=== PATIENT | male | born 1955 | race American Indian/Alaskan Native ===

== ENCOUNTER 2017-05-05 10:58 | Day surgery (SDC) | payer BC ==
[~2017-05-05 10:58] MED LIST: ANCEF/STERILE WATER 2 GM/20 ML IV NR; GARAMYCIN/NS 80 MG/100 ML 100 ML IV SCH
[2017-05-05] MEDS ORDERED: NACL BACTERIOSTATIC INFILTRATI ONE (11:32)
--- NOTE | 2017-05-05 11:34 | Anesthesia Consultation ---
Anesthesia Consult and Med Hx Date of service: 05/05/17 - Airway Anesthetic Teeth Evaluation: Good ROM Head & Neck: Adequate Mental/Hyoid Distance: Adequate Mallampati Class: Class II Intubation Access Assessment: Probably Good - Pulmonary Exam CTA: Yes - Cardiac Exam Cardiac Exam: RRR - Pre-Operative Health Status ASA Pre-Surgery Classification: ASA3 Proposed Anesthetic Plan: General - Pulmonary Hx Smoking: No Hx Sleep Apnea: (SHANON PRE SCREEN HIGH RISK.) - Cardiovascular System Hx Hypertension: Yes (1992) Hx Angina: No - Central Nervous System Hx Neuromuscular Disorder: No - Gastrointestinal Hx Gastroesophageal Reflux Disease: No - Endocrine Hx Renal Disease: No Hx Insulin Dependent Diabetes: No - Other Systems Hx Alcohol Use: No Hx Substance Use: No Hx Cancer: No
--- NOTE | 2017-05-05 11:34 | Anesthesia Day of Surgery ---
Anesthesia Day of Surgery - Day of Surgery Patient Examined: Yes Patient H&P Reviewed: Yes Patient is NPO: Yes
[2017-05-05] MEDS ORDERED: ZOFRAN IV PRN (11:36)
[2017-05-05] MEDS ORDERED: DILAUDID IV PRN (11:36)
[2017-05-05] MEDS ORDERED: VERSED IV NR (12:00)
[2017-05-05] MEDS ORDERED: NACL 0.9% 1000 ML 1,000 ML IV SCH (12:00)
[2017-05-05] MEDS ORDERED: PEPCID IV NR (12:00)
[2017-05-05] MEDS ORDERED: XYLOCAINE MPF 2% ONE (12:56)
[2017-05-05] MEDS ORDERED: SUBLIMAZE ONE (12:59)
[2017-05-05] MEDS ORDERED: DIPRIVAN 10 MG/ML IV ONE (12:59)
[2017-05-05] MEDS ORDERED: WATER FOR IRRIG STERILE IR ONE ×2 (13:04)
[2017-05-05] MEDS ORDERED: ePHEDrine SULFATE ONE (13:47)
[2017-05-05] MEDS ORDERED: ZOFRAN ONE (13:56)
--- NOTE | 2017-05-05 14:03 | Short Stay Summary ---
Short Stay Documentation Date of service: 05/05/17 - History H&P: obtained from office - Allergies and Medications Current Medications: Allergies No Known Allergies Allergy (Verified 06/01/13 07:42) Home Medications Medication Instructions Recorded Confirmed Last Taken Type Lisinopril/Hydrochlorothiazide 1 tab PO DAILY 05/30/13 04/20/17 05/05/17 09:00 History [Zestoretic 20-12.5 mg] Multivit-Min/Folic/Vit K/Lycop [Eq 1 tab PO DAILY 05/30/13 04/20/17 05/05/17 09: 00 History One Daily Men's Tablet] Verapamil HCl 120 mg PO DAILY 05/30/13 04/20/17 05/05/17 09:00 History [place]-3 1 cap PO QDAY 05/05/17 05/05/17 05/05/17 09:00 History Active Medications Cefazolin Sodium (Ancef/Sterile Water 2 Gm/20 Ml) 2 gm IV PREOP NR Stop: 05/06/17 23:59 Famotidine (Pepcid) 20 mg IV PREOP NR Stop: 05/05/17 23:59 Last Admin: 05/05/17 12:22 Dose: 20 mg Hydromorphone HCl (Dilaudid) 0.5 mg IV Q10MIN PRN PRN Reason: Pain , Severe (7-10) Gentamicin Sulfate/Sodium Chloride (Garamycin/Ns 80 Mg/100 Ml) 100 mls @ 200 mls/hr IV PREOP CHIQUIS Stop: 05/06/17 23:59 Sodium Chloride (Nacl 0.9% 1000 Ml) 1,000 mls @ 42 mls/hr IV DIRECT CHIQUIS Last Admin: 05/05/17 12:19 Dose: 42 mls/hr Midazolam HCl (Versed) 2 mg IV PREOP NR Stop: 05/05/17 23:59 Last Admin: 05/05/17 12:23 Dose: 2 mg Ondansetron HCl (Zofran) 4 mg IV ONCE PRN PRN Reason: Nausea And Vomiting - Brief post op/procedure progress note Date of procedure: 05/05/17 Pre-op diagnosis: prostate cancer, psa 6 Post-op diagnosis: same Procedure: cysto, rpg, pus 31cc, bx prostate (restaging) Anesthesia: GETA Surgeon: SHAY MIJARES Estimated blood loss: minimal Pathology: list (prostate cores) Specimen disposition: to lab Condition: stable - Hospital course Hospital course: jo abdi, post op info on chart - Disposition Condition at discharge: Stable Disposition: DC-01 TO HOME OR SELFCARE Short Stay Discharge Plan Follow up with: BRYON ROSENBERG MD [Primary Care Provider] - 7 Days
--- NOTE | 2017-05-05 15:39 | Operative Report ---
PREOPERATIVE DIAGNOSIS: Prostate cancer. PSA 6 (restaging). POSTOPERATIVE DIAGNOSES: Prostate cancer. PSA 6 (restaging), benign prosthetic hypertrophy. PROCEDURE: Cystoscopy, bilateral retrograde pyelograms, transrectal ultrasound and biopsy of prostate (31 mL gland). SURGEON: Duane San MD ANESTHESIA: General. ESTIMATED BLOOD LOSS: Minimal. FLUIDS: Crystalloid. COMPLICATIONS: No complications. ANESTHESIOLOGIST: Dr. Ravi. INDICATIONS: This 61-year-old gentleman seen in the office with the diagnosis of prostate cancer. He was diagnosed on 07/06/2013, with a PSA of 4.2. He was found to have [place] 6, 3 of 12 cores. Initial biopsy was done by Dr. Bernstein. He elected active surveillance. Repeat biopsy 05/08/2014, revealed a [place] 7 (3+4 in 6 of 12 cores). Dr. Sim at [facility], again he elected conservative therapy. His PSA has been in the 3.3-5 range, most recently PSA has increased to 6 on 01/12/2017. He presents now for restaging. DESCRIPTION OF PROCEDURE: The patient was taken to the operative suite, placed in a supine position. After adequate general anesthesia, placed in a dorsal lithotomy position, prepped and draped in a sterile fashion. Pancystourethroscopy was performed with 22-[place] Storz cystoscope, no urethral abnormalities. His prostate displayed some mild trilobar obstruction, no tumors or stones were noted. Bilateral retrograde pyelograms were obtained with an 8 [place] Denair catheter and 8 mL of contrast. No filling defects or obstruction. 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 With a transrectal ultrasound and probe, transrectal ultrasound of the prostate was performed. Measurements revealed a 31-gram gland. Twelve core biopsy was taken, 4 at the base, mid, and apex of the prostate. The patient tolerated the procedure well. Bladder was drained. He was extubated and taken to recovery room. His rectal exam was benign. He was taken to recovery room in stable condition. He will go home with Nik and Ximena and follow up in the office. JOB# [id number] [facility]
[2017-05-05 15:48] VITALS: BP 131/95
--- NOTE | 2017-05-05 16:10 | Ultrasound Report ---
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 FINDINGS: 3 ultrasound images were produced for localization and prostate biopsy. Please correlate with the procedural report.
--- NOTE | 2017-05-06 07:38 | Fluoroscopy Report ---
FLUOROSCOPY RETROGRADE UROGRAPHY: HISTORY: Elevated PSA, prostate cancer. FINDINGS: Fluoroscopy was provided by radiology during retrograde urography by the urologist. 10 fluoroscopic images were captured. There is adequate filling of the ureters and intrarenal collecting systems with no filling defects or abnormal dilatation identified. 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 Please correlate with the procedural report if needed. IMPRESSION: Retrograde pyelograms within normal limits. Duplicated left collecting system as described.
== END 2017-05-05 16:00 | disposition home or self-care (01) ==
LOC: OR 10:58
PROVIDERS: ATTEND Urology
DX: C61 Malignant neoplasm of prostate (principal); I10 Essential (primary) hypertension; Q63.0 Accessory kidney
CPT/HCPCS: 36415; 52000; 55700; 74420; 76998; 84132; 88305; A4217; C1758; J0690; J1580; J2250; J2405; J2704; J3010; J7030; Q9967

== ENCOUNTER 2021-01-27 05:53 | Observation (INO) | payer BC, MEDICARE ==
[2021-01-22 11:01] LABS: Hematocrit 45.9 % (35.5-45.6); Hemoglobin 14.7 gm/dl (11.8-15.2); Mean Corpuscular HGB Conc 32 % (32-34); Mean Corpuscular Volume 92 fl (84-94); Platelet Count 191 K/mm3 (140-440); Red Blood Count 5.01 M/mm3 (3.65-5.03); Red Cell Distribution Width 13.3 % (13.2-15.2)
[2021-01-22 11:23] LABS: Alanine Aminotransferase 15 units/L (7-56); Albumin 4.4 g/dL (3.9-5); BUN/Creatinine Ratio 15; Blood Urea Nitrogen 17 mg/dL (9-20); Calcium 9.5 mg/dL (8.4-10.2); Hemolysis Index 10
--- NOTE | 2021-01-22 15:26 | Anesthesia Consultation ---
Anesthesia Consult and Med Hx Date of service: 01/27/21 - Airway Anesthetic Teeth Evaluation: Caps (Implants) - Pre-Operative Health Status ASA Pre-Surgery Classification: ASA2 Proposed Anesthetic Plan: General Nerve Block: TAP - Pulmonary Hx Smoking: No Hx Respiratory Symptoms: No (+2FS) Hx Sleep Apnea: No (SHANON PRE SCREEN HIGH RISK.) - Cardiovascular System Hx Hypertension: Yes (1992) - Central Nervous System Hx Neuromuscular Disorder: No Hx Psychiatric Problems: No - Gastrointestinal Hx Gastroesophageal Reflux Disease: No - Endocrine Hx Renal Disease: No Hx Insulin Dependent Diabetes: No - Hematic Hx Anemia: No Hx Sickle Cell Disease: No - Other Systems Hx Alcohol Use: No Hx Substance Use: No Hx Cancer: Yes (Prostate)
[2021-01-27] MEDS ORDERED: fentaNYL 100 MCG/2 ML INJ IV ONE (06:00)
[2021-01-27] MEDS ORDERED: MAGNESIUM OXIDE 400 MG TAB PO ONE (06:00)
[2021-01-27] MEDS ORDERED: MIDAZOLAM 2 MG/2 ML INJ IV NR (06:00)
[2021-01-27] MEDS ORDERED: GABAPENTIN 300 MG CAP PO NR (06:00)
[2021-01-27] MEDS ORDERED: CELECOXIB 200 MG CAP PO NR (06:00)
[2021-01-27] MEDS ORDERED: LACTATED RINGERS 1,000 ML IV SCH (06:00)
[2021-01-27] MEDS ORDERED: ACETAMINOPHEN 500 MG TAB PO ONE (06:00)
[2021-01-27] MEDS ORDERED: BACTERIOSTATIC SODIUM CHLORIDE 0.9% 30 ML VIAL INFILTRATI ONE (06:39)
--- NOTE | 2021-01-27 07:18 | Anesthesia Day of Surgery ---
Anesthesia Day of Surgery - Day of Surgery Patient Examined: Yes Patient H&P Reviewed: Yes Patient is NPO: Yes
[2021-01-27] MEDS ORDERED: dexAMETHasone 4 MG/ML VIAL ONE (07:24)
[2021-01-27] MEDS ORDERED: BUPIVACAINE/PF (0.25%) 2.5 MG/ML 30 ML VIAL INFILTRATI ONE (07:24)
[2021-01-27] MEDS ORDERED: fentaNYL 100 MCG/2 ML INJ ONE (07:26)
[2021-01-27] MEDS ORDERED: ROCURONIUM 50 MG/5 ML INJ IV ONE ×2 (07:26→09:18)
[2021-01-27] MEDS ORDERED: propofoL 200 MG/20 ML VIAL IV ONE (07:26)
[2021-01-27] MEDS ORDERED: LIDOCAINE MPF (2%) 20 MG/1 ML VIAL 5 ML ONE (07:26)
[2021-01-27] MEDS ORDERED: CITRIC ACID-SOD CITRATE 500 ML IV ONE (07:28)
[2021-01-27] MEDS ORDERED: LIDOCAINE (1%) 10 MG/1 ML VIAL 20 ML MDV ONE (07:28)
[2021-01-27] MEDS ORDERED: METHYLENE BLUE 50 MG/10 ML AMP ONE (07:29)
[2021-01-27] MEDS ORDERED: CALCIUM CHLORIDE 1,000 MG/10 ML SYRINGE IV ONE ×2 (07:29→09:43)
[2021-01-27] MEDS ORDERED: THROMBIN (RECOMBINANT) 5,000 UNIT VIAL TP ONE ×2 (07:29→09:44)
[2021-01-27] MEDS ORDERED: ceFAZolin/Water 2 GM/20 ML 2 GM/20 ML SYRINGE IV ONE (07:34)
[2021-01-27] MEDS ORDERED: ceFAZolin/STERILE WATER 2 GM/20 ML SYRINGE IV NR (08:00)
[2021-01-27] MEDS ORDERED: PHENYLEPHRINE/NS 1,000 MCG/10 ML SYRINGE (OR USE) IV ONE (08:15)
[2021-01-27] MEDS ORDERED: ONDANSETRON 4 MG/2 ML INJ ONE (08:26)
[2021-01-27] MEDS ORDERED: dexAMETHasone 20 MG/5 ML VIAL ONE (08:26)
[2021-01-27] MEDS ORDERED: KETOROLAC 30 MG/1 ML INJ ONE (08:26)
[2021-01-27] MEDS ORDERED: WATER FOR IRRIG STERILE 1,500 ML BOTTLE IR ONE (08:59)
[2021-01-27] MEDS ORDERED: SODIUM CHLORIDE 0.9% IRRIG SOLN 2000 ML IR ONE (08:59)
[2021-01-27] MEDS ORDERED: ePHEDrine SULFATE 50 MG/1 ML INJ ONE (09:02)
[2021-01-27] MEDS ORDERED: HYDROmorphone 1 MG/1 ML INJ IV PRN ×2 (09:10→09:30)
[2021-01-27] MEDS ORDERED: ONDANSETRON 4 MG/2 ML INJ IV PRN ×2 (09:30→11:01)
[2021-01-27] MEDS ORDERED: LACTATED RINGERS 1,000 ML ONE (09:36)
[2021-01-27] MEDS ORDERED: CITRIC ACID-SOD CITRATE SOLN 500 ML IV SOLN IV ONE (09:42)
--- NOTE | 2021-01-27 10:58 | Short Stay Summary ---
Short Stay Documentation Date of service: 01/27/21 - History H&P: obtained from office - Allergies and Medications Current Medications: Allergies No Known Allergies Allergy (Verified 06/01/13 07:42) Home Medications Medication Instructions Recorded Confirmed Last Taken Type Multivit-Min/Folic/Vit K/Lycop [Eq 1 tab PO DAILY 05/30/13 01/21/21 05/05/17 09:00 History One Daily Men's Tablet] Ascorbic Acid [Vitamin C] 1,000 mg PO DAILY 01/21/21 01/21/21 Unknown History Cholecalciferol (Vitamin D3) 2,000 unit PO QDAY 01/21/21 01/21/21 Unknown History [Vitamin D3 2,000 UNIT CAP] Vit B/Min/Saw [place] 1 each PO DAILY 01/21/21 01/21/21 Unknown History [Urinozinc Prost Complx [facility]] amLODIPine [Norvasc] 10 mg PO DAILY 01/21/21 01/21/21 Unknown History Active Medications Celecoxib (Celecoxib 200 Mg Cap) 400 mg PO PREOP NR Stop: 01/27/21 23:59 Last Admin: 01/27/21 07:15 Dose: 400 mg Documented by: Gabapentin (Gabapentin 300 Mg Cap) 300 mg PO PREOP NR Stop: 01/27/21 23:59 Last Admin: 01/27/21 07:15 Dose: 300 mg Documented by: Hydromorphone HCl (Hydromorphone 1 Mg/1 Ml Inj) 0.25 mg IV Q10MIN PRN PRN Reason: Pain, Moderate (4-6) Stop: 01/27/21 23:00 Hydromorphone HCl (Hydromorphone 1 Mg/1 Ml Inj) 0.5 mg IV Q10MIN PRN PRN Reason: Pain , Severe (7-10) Stop: 01/27/21 23:00 Lactated Ringer's (Lactated Ringers) 1,000 mls @ 125 mls/hr IV DIRECT CHIQUIS Last Admin: 01/27/21 07:32 Dose: 125 mls/hr Documented by: Midazolam HCl (Midazolam 2 Mg/2 Ml Inj) 2 mg IV PREOP NR Stop: 01/27/21 23:59 Last Admin: 01/27/21 07:36 Dose: 2 mg Documented by: Ondansetron HCl (Ondansetron 4 Mg/2 Ml Inj) 4 mg IV ONCE PRN PRN Reason: Nausea And Vomiting - Brief post op/procedure progress note Date of procedure: 01/27/21 Pre-op diagnosis: prostate cancer Post-op diagnosis: same Procedure: robotic prostatectomy, bladder neck suspension, stem cells Anesthesia: GETA Surgeon: SHAY MIJARES Estimated blood loss: other (300cc) Pathology: list (prostate) Specimen disposition: to lab Condition: stable - Hospital course Hospital course: pt has abx & pain meds post op info on chart - Disposition Condition at discharge: Stable Disposition: 01 HOME / SELF CARE / HOMELESS Short Stay Discharge Plan Follow up with: BRYON ROSENBERG MD [Primary Care Provider] - 7 Days
[2021-01-27] MEDS ORDERED: MORPHINE 4 MG/1 ML INJ IV PRN (11:01)
[2021-01-27] MEDS ORDERED: NALOXONE 0.4 MG/1 ML INJ IV PRN (11:01)
[2021-01-27] MEDS ORDERED: ZOLPIDEM 5 MG TAB PO PRN (11:01)
[2021-01-27] MEDS ORDERED: ACETAMINOPHEN 325 MG TAB PO PRN (11:01)
[2021-01-27] MEDS ORDERED: ceFAZolin/NS 1 GM/50 ML 1 GM/50 ML BAG IV SCH (12:00)
--- NOTE | 2021-01-27 12:05 | Operative Report ---
DATE OF SURGERY: 01/27/2021 PREOPERATIVE DIAGNOSIS: Prostate cancer ([place] 3+4). POSTOPERATIVE DIAGNOSIS: Prostate cancer ([place] 3+4). PROCEDURES: Robotic-assisted laparoscopic prostatectomy, bladder neck suspension, stem cell placement, right nerve sparing. SURGEON: Duane San MD WOOD STRIP BLOCK FLOOR INSTALLER: Sari Avilez. ANESTHESIA: General. ESTIMATED BLOOD LOSS: 300 mL. FLUIDS: Crystalloid, Cell Saver 175. DRAIN: Kristopher-Momin drain. COMPLICATIONS: No complications. INDICATIONS: This patient is a 65-year-old gentleman who underwent a biopsy of the prostate in 2015 by another urologist, was found to have [place] 6 adenocarcinoma of the prostate. He elected for observation. I saw him in 2018. We did repeat biopsies then, found to have [place] 3+4 adenocarcinoma of the prostate. We continued to follow him conservatively. His PSA initially was in the 5 range. Most recent PSA by his primary care was 12. Metastatic workup was negative, which included bone scan, CT scan and MRI of the prostate. Discussed options with the patient and his , they agreed to proceed with surgical intervention. DESCRIPTION OF PROCEDURE: The patient was taken to the operative suite, placed in a supine position. After adequate general anesthesia, he was placed in a modified dorsal lithotomy position, prepped and draped in a sterile fashion. A Cifuentes catheter was placed on the operative field. A 1 cm supraumbilical incision was made. Veress needle was used for drop test. Towel clips were used for anterior retraction. Drop test was negative. Opening pressure was 1 cm of water. Insufflation to 15 cm of water of the abdomen was performed without difficulty. A 15 cm cephalad to pubic symphysis was marked in the midline, 9 cm lateral and additional 9 cm lateral was marked for the robotic ports. The 0-degree lens was placed in the supraumbilical incision without difficulty. Upon entering the abdomen, no signs of injury or metastasis could be appreciated. Also, of note, the patient has a small, approximately 1 cm umbilical hernia. Robotic ports were placed under direct vision without difficulty, two 8 mm ports on the left, one 8 mm port on the right and additional 10 mm and 5 mm helper ports on the right. The patient was placed in an exaggerated Trendelenburg position. Robotic cart was docked between the legs. Posterior of the prostate and bladder could be appreciated. Second arch was scored, exposing the seminal vesicles and vas deferens. Dissection was taken to the apex of the prostate without difficulty. Vas deferens was transected bilaterally without difficulty. Next, attention was taken to the anterior aspect of the abdomen laterally. Lateral umbilical ligament was scored to the pubic rami without difficulty. Bladder flap was dropped. Dorsal vein complex was controlled with a 60 mm vascular stapler. Endopelvic fascia was opened bilaterally. Gentle and athermal dissection to allow dropping of the rectum and endopelvic fascia without difficulty. Bladder neck was scored with the Bovie anteriorly. Cifuentes catheter was appreciated, deflated and used for anterior traction. Posterior bladder neck was transected without difficulty. The ureteral orifices could be appreciated bilaterally and uninjured. Seminal vesicles and vas deferens were pulled anteriorly exposing the lateral pedicles. Right side I was able to dissect in an athermal fashion and the neurovascular bundle could be appreciated and appeared uninjured. Left side with some adipose tissue as well as his tumor was on this side. Attempts to dissect the posterior and lateral aspect of the prostate on the left side was performed in an athermal fashion. There was some tedious bleeding. The rest of the dissection was done with 60 mm vascular stapler, although I could appreciate some of the neurovascular bundle on that side. Urethra distal to the prostate was transected anteriorly. Cifuentes catheter was pulled out. Distal dissection was performed without difficulty. Prostate was then placed in EndoCatch bag. Copious irrigation was performed. Adequate hemostasis was achieved. Rectum was uninjured. Again, the vascular bundles could be appreciated. A 2 x 4 Integra stem cell membrane was placed across the anterior rectum. Next, attention was taken to the bladder neck. A 2-0 Vicryl was placed at the 5 o'clock and 7 o'clock positions to allow tapering of the bladder neck. A double-armed V-Loc was then placed at the 6 o'clock position of the bladder neck and the corresponding aspect of the urethra, running stitch was placed bilaterally without difficulty. A new Cifuentes catheter was placed in the bladder, 15 mL sterile water. The anastomosis was cinched down, irrigated. No clots, no signs of a leak. Double-armed V-Loc stitch was then placed in the posterior aspect of the pubic rami bilaterally to allow bladder neck suspension and placed under gentle tension. Platelet rich plasma and platelet poor plasma was injected around the urethra as well as a platelet membrane. A 10 mm Kristopher-Momin drain was brought out through the left-sided port, tied to the skin with 2-0 silk in an interrupted fashion. The patient was placed in a supine position. Robot was undocked. Supraumbilical incision was extended slightly to allow removal of the prostate. This incision was then closed with 0 Vicryl in a [id number] fashion. The rest of the ports were closed with 2-0 Vicryl in an interrupted fashion. Cifuentes catheter was folded over, sideport was tied with 0 silk in interrupted fashion. The patient tolerated the procedure well and was extubated and taken to the recovery room. He will be observed overnight, go home on Bactrim and [place]. Sari Avilez was present throughout the procedure to assist at the bedside. TID: [id number] RECEIPT: [id number] ANDREW/KIZZY THOMAS
[2021-01-27] MEDS: HYDROcodone/ACETAMINOPHEN 5-325 MG TAB PO PRN (15:48)
--- NOTE | 2021-01-27 17:30 | Post Anesthesia Evaluation ---
- Post Anesthesia Evaluation Patient Participated: Yes Airway Patent: Yes Stable Respiratory Function: Yes Nausea/Vomiting: No Temp > 96.8F: Yes Pain Manageable: Yes Adequeate Hydration: Yes Anesthesia Complications: No Block Receding Appropriately: Yes Patient on Ventilator: No
[2021-01-27] MEDS: SODIUM CHLORIDE 0.9% 1000 ML 1,000 ML IV SCH (20:43)
--- NOTE | 2021-01-27 21:06 | Consultation ---
History of Present Illness - Reason for Consult Consult date: 01/28/21 Medical Management Requesting physician: SHAY SAN - History of Present Illness 65 YO Male with HTN, CAP admitted for urologic surgery. Consult placed by Dr. San for medical management. Pt seen and evaluated in his room. No reported nursing event. Pt denies any complaints at this time. Past History Past Medical History: cancer, hypertension Past Surgical History: Other (Prostatectomy) Social history: , lives with family Family history: hypertension Medications and Allergies Allergies Allergy/AdvReac Type Severity Reaction Status Date / Time No Known Allergies Allergy Verified 01/27/21 14:40 Home Medications Medication Instructions Recorded Confirmed Last Taken Type Ascorbic Acid [Vitamin C] 1,000 mg PO DAILY 01/21/21 01/21/21 01/26/21 History Cholecalciferol (Vitamin D3) 2,000 unit PO QDAY 01/21/21 01/21/21 01/26/21 History [Vitamin D3 2,000 UNIT CAP] Vit B/Min/Saw [place] 1 each PO DAILY 01/21/21 01/21/21 01/26/21 History [Urinozinc Prost Complx [facility] Cp] amLODIPine [Norvasc] 10 mg PO DAILY 01/21/21 01/27/21 01/27/21 06:00 History Fexofenadine HCl [Preethi Allergy] 180 mg PO QDAY 01/27/21 01/27/21 01/25/21 History Fluticasone [Flonase] 2 spray NS QDAY 01/27/21 01/27/21 01/25/21 History Vit C/Ascorb Sod/Multivit-Min 1,000 mg PO QDAY 01/27/21 01/27/21 01/25/21 History [Emergen-C 500 mg Chewable Tab] Active Meds: Active Medications Acetaminophen (Acetaminophen 325 Mg Tab) 650 mg PO Q4H PRN PRN Reason: Pain, Mild (1-3)/Fever > 100.5 Hydrocodone Bitart/Acetaminophen (Hydrocodone/Acetaminophen 5-325 Mg Tab) 2 each PO Q4H PRN PRN Reason: Pain, Moderate (4-6) Last Admin: 01/27/21 15:48 Dose: 2 each Documented by: Amlodipine Besylate (Amlodipine 10 Mg Tab) 10 mg PO DAILY CHIQUIS Celecoxib (Celecoxib 200 Mg Cap) 400 mg PO PREOP NR Stop: 01/27/21 23:59 Last Admin: 01/27/21 07:15 Dose: 400 mg Documented by: Gabapentin (Gabapentin 300 Mg Cap) 300 mg PO PREOP NR Stop: 01/27/21 23:59 Last Admin: 01/27/21 07:15 Dose: 300 mg Documented by: Hydromorphone HCl (Hydromorphone 1 Mg/1 Ml Inj) 0.25 mg IV Q10MIN PRN PRN Reason: Pain, Moderate (4-6) Stop: 01/27/21 23:00 Hydromorphone HCl (Hydromorphone 1 Mg/1 Ml Inj) 0.5 mg IV Q10MIN PRN PRN Reason: Pain , Severe (7-10) Stop: 01/27/21 23:00 Lactated Ringer's (Lactated Ringers) 1,000 mls @ 125 mls/hr IV DIRECT CHIQUIS Last Admin: 01/27/21 07:32 Dose: 125 mls/hr Documented by: Sodium Chloride (Nacl 0.9% 1000 Ml) 1,000 mls @ 125 mls/hr IV DIRECT CHIQUIS Last Admin: 01/27/21 20:43 Dose: 125 mls/hr Documented by: Cefazolin Sodium (Ancef/Ns 1 Gm/50 Ml) 1 gm in 50 mls @ 100 mls/hr IV Q8H CHIQUIS; Protocol Stop: 01/28/21 02:29 Midazolam HCl (Midazolam 2 Mg/2 Ml Inj) 2 mg IV PREOP NR Stop: 01/27/21 23:59 Last Admin: 01/27/21 07:36 Dose: 2 mg Documented by: Morphine Sulfate (Morphine 4 Mg/1 Ml Inj) 4 mg IV Q4H PRN PRN Reason: Pain , Severe (7-10) Naloxone HCl (Naloxone 0.4 Mg/1 Ml Inj) 0.1 mg IV Q2MIN PRN PRN Reason: Res Rate </= 8 or 02 SAT < 92% Ondansetron HCl (Ondansetron 4 Mg/2 Ml Inj) 4 mg IV ONCE PRN PRN Reason: Nausea And Vomiting Ondansetron HCl (Ondansetron 4 Mg/2 Ml Inj) 4 mg IV Q8H PRN PRN Reason: Nausea And Vomiting Zolpidem Tartrate (Zolpidem 5 Mg Tab) 5 mg PO QHS PRN PRN Reason: Sleep Review of Systems Constitutional: no weight loss, no fever, no chills Ears, nose, mouth and throat: no ear pain, no decreased hearing Cardiovascular: no chest pain, no rapid/irregular heart beat, no edema, no syncope Respiratory: no cough, no excessive sputum, no hemoptysis, no shortness of breath Gastrointestinal: no abdominal pain, no nausea, no vomiting, no constipation, no change in bowel habits, no hematemesis Genitourinary Male: no hematuria, no discharge, no urinary frequency, no urinary hesitancy Rectal: no pain, no incontinence, no bleeding Musculoskeletal: no neck stiffness, no shooting arm pain, no arm numbness/tingling, no redness of joints Integumentary: no pruritis, no redness, no sores, no jaundice, no boils Neurological: no head injury, no paralysis, no weakness, no parathesias, no tingling, no syncope Psychiatric: no anxiety, no sleep disturbances, no insomnia, no change in appetite, no suicidal ideation Endocrine: no cold intolerance, no polyphagia, no polydipsia, no nocturia, no excessive sweating Hematologic/Lymphatic: no easy bruising Allergic/Immunologic: no urticaria, no allergic rhinitis, no wheezing Exam - Constitutional Vitals: Temp Pulse Resp BP Pulse Ox 99 F 87 18 114/77 96 01/27/21 20:00 01/27/21 20:27 01/27/21 20:00 01/27/21 20:00 01/27/21 20:00 General appearance: Present: no acute distress - EENT Eyes: Present: PERRL ENT: hearing intact, clear oral mucosa - Neck Neck: Present: supple, normal ROM - Respiratory Respiratory effort: normal Respiratory: bilateral: CTA - Cardiovascular Heart Sounds: Present: S1 & S2. Absent: rub, click - Extremities Extremities: pulses symmetrical, No edema Peripheral Pulses: within normal limits - Abdominal General gastrointestinal: Present: soft, non-tender, non-distended, normal bowel sounds Male genitourinary: Present: normal - Integumentary Integumentary: Present: clear, warm, dry - Musculoskeletal Musculoskeletal: gait normal, strength equal bilaterally - Psychiatric Psychiatric: appropriate mood/affect, intact judgment & insight - Neurologic Neurologic: CNII-XII intact, moves all extremities Results - Labs CBC & Chem 7: 01/28/21 04:43 01/28/21 04:43 Assessment and Plan - Patient Problems (1) HTN (hypertension) Current Visit: Yes Status: Acute Qualifiers: Hypertension type: primary hypertension Qualified Code(s): I10 - Essential (primary) hypertension Plan to address problem: Monitor BP q shift, continue medical management. (2) Prostate cancer Current Visit: Yes Status: Acute Plan to address problem: S/P prostateectomy as per primary team, supportive care, pain control (3) Advance care planning Current Visit: Yes Status: Acute Plan to address problem: diseased education conducted, care plan discussed, prognosis discussed, Pt acknowledges understanding and agreement with care plan. + 30 minutes.
[2021-01-27] MEDS: ceFAZolin/NS 1 GM/50 ML 1 GM/50 ML BAG IV SCH (22:40)
[2021-01-28] MEDS: ceFAZolin/NS 1 GM/50 ML 1 GM/50 ML BAG IV SCH (04:14)
[2021-01-28 04:22] VITALS: BP 115/79
[2021-01-28] MEDS: SODIUM CHLORIDE 0.9% 1000 ML 1,000 ML IV SCH (04:30)
[2021-01-28 05:20] LABS: Hematocrit 37.1 % (35.5-45.6); Hemoglobin 12.3 gm/dl (11.8-15.2); Lymphocytes # (Auto) 0.7 K/mm3 (1.2-5.4); Mean Corpuscular HGB Conc 33 % (32-34); Mean Corpuscular Volume 91 fl (84-94); Monocytes # (Auto) 0.6 K/mm3 (0.0-0.8); Monocytes % (Auto) 5.5 % (0.0-7.3); Platelet Count 178 K/mm3 (140-440); Red Blood Count 4.05 M/mm3 (3.65-5.03); Red Cell Distribution Width 13.1 % (13.2-15.2)
[2021-01-28 05:36] LABS: BUN/Creatinine Ratio 20; Blood Urea Nitrogen 24 mg/dL (9-20); Calcium 8.9 mg/dL (8.4-10.2); Hemolysis Index 7
[2021-01-28] MEDS: HYDROcodone/ACETAMINOPHEN 5-325 MG TAB PO PRN (06:07)
[2021-01-28] MEDS ORDERED: ceFAZolin/NS 1 GM/50 ML 1 GM/50 ML BAG IV SCH (07:00)
[2021-01-28] MEDS ORDERED: amLODIPine 10 MG TAB PO SCH (10:00)
--- NOTE | 2021-01-28 11:08 | Progress Note ---
History Interval history: 65-year-old male with history of prostate cancer admitted for robotic prostatectomy, bladder neck suspension, stem cells. Consultation for medical management of hypertension. Prostate cancer s/p prostatectomy Hypertension. 01/28/2021. Patient with plans to discharge home today. Blood pressure stable and no changes. Hospitalist Physical - Constitutional Vitals: Temp Pulse Resp BP Pulse Ox 98.5 F 72 18 115/79 96 01/28/21 03:38 01/28/21 03:38 01/28/21 06:07 01/28/21 03:38 01/28/21 09:38 Results - Labs CBC & Chem 7: 01/28/21 04:43 01/28/21 04:43 Labs: Laboratory Last Values WBC 10.2 K/mm3 (4.5-11.0) 01/28/21 04:43 RBC 4.05 M/mm3 (3.65-5.03) 01/28/21 04:43 Hgb 12.3 gm/dl (11.8-15.2) 01/28/21 04:43 Hct 37.1 % (35.5-45.6) 01/28/21 04:43 MCV 91 fl (84-94) 01/28/21 04:43 MCH 30 pg (28-32) 01/28/21 04:43 MCHC 33 % (32-34) 01/28/21 04:43 RDW 13.1 % (13.2-15.2) L 01/28/21 04:43 Plt Count 178 K/mm3 (140-440) 01/28/21 04:43 Lymph % (Auto) 7.0 % (13.4-35.0) L 01/28/21 04:43 [place] % (Auto) 5.5 % (0.0-7.3) 01/28/21 04:43 Eos % (Auto) 0.0 % (0.0-4.3) 01/28/21 04:43 Baso % (Auto) 0.0 % (0.0-1.8) 01/28/21 04:43 Lymph # (Auto) 0.7 K/mm3 (1.2-5.4) L 01/28/21 04:43 [place] # (Auto) 0.6 K/mm3 (0.0-0.8) 01/28/21 04:43 Eos # (Auto) 0.0 K/mm3 (0.0-0.4) 01/28/21 04:43 Baso # (Auto) 0.0 K/mm3 (0.0-0.1) 01/28/21 04:43 Seg Neutrophils % 87.5 % (40.0-70.0) H 01/28/21 04:43 Seg Neutrophils # 8.9 K/mm3 (1.8-7.7) H 01/28/21 04:43 Sodium 136 mmol/L (137-145) L 01/28/21 04:43 Potassium 4.6 mmol/L (3.6-5.0) 01/28/21 04:43 Chloride 102.3 mmol/L (98-107) 01/28/21 04:43 Carbon Dioxide 22 mmol/L (22-30) 01/28/21 04:43 Anion Gap 16 mmol/L 01/28/21 04:43 BUN 24 mg/dL (9-20) H 01/28/21 04:43 Creatinine 1.2 mg/dL (0.8-1.3) 01/28/21 04:43 Estimated GFR > 60 ml/min 01/28/21 04:43 BUN/Creatinine Ratio 20 % 01/28/21 04:43 Glucose 139 mg/dL (75-100) H 01/28/21 04:43 Calcium 8.9 mg/dL (8.4-10.2) 01/28/21 04:43 Total Bilirubin 0.50 mg/dL (0.1-1.2) 01/22/21 00:01 AST 21 units/L (5-40) 01/22/21 00:01 ALT 15 units/L (7-56) 01/22/21 00:01 Alkaline Phosphatase 59 units/L (35-129) 01/22/21 00:01 Total Protein 7.2 g/dL (6.3-8.2) 01/22/21 00:01 Albumin 4.4 g/dL (3.9-5) 01/22/21 00:01 Albumin/Globulin Ratio 1.6 % 01/22/21 00:01 Coronavirus (PCR) Negative (Negative) 01/22/21 09:40 Blood Type O POSITIVE 01/27/21 06:55 Antibody Screen Negative 01/27/21 06:55 Cifuentes/IV: Voiding Method Toilet Active Medications - Current Medications Current Medications: Generic Name Dose Route Start Last Admin Trade Name Ajayq PRN Reason Stop Dose Admin Acetaminophen 650 mg 01/27/21 11:01 Acetaminophen 325 Mg Tab PO Q4H PRN Pain, Mild (1-3)/Fever > 100.5 Hydrocodone Bitart/Acetaminophen 2 each 01/27/21 11:01 01/28/21 06:07 Hydrocodone/Acetaminophen 5-325 Mg Tab PO 2 each Q4H PRN Administration Pain, Moderate (4-6) Amlodipine Besylate 10 mg 01/28/21 10:00 Amlodipine 10 Mg Tab PO DAILY CHIQUIS Lactated Ringer's 1,000 mls @ 125 mls/hr 01/27/21 06:00 01/27/21 07:32 Lactated Ringers IV 125 mls/hr DIRECT [place]IQUIS Administration Sodium Chloride 1,000 mls @ 125 mls/hr 01/27/21 11:15 01/28/21 04:30 Nacl 0.9% 1000 Ml IV 125 mls/hr DIRECT [place] Administration Morphine Sulfate 4 mg 01/27/21 11:01 Morphine 4 Mg/1 Ml Inj IV Q4H PRN Pain , Severe (7-10) Naloxone HCl 0.1 mg 01/27/21 11:01 Naloxone 0.4 Mg/1 Ml Inj IV Q2MIN PRN Res Rate </= 8 or 02 SAT < 92% Ondansetron HCl 4 mg 01/27/21 09:30 Ondansetron 4 Mg/2 Ml Inj IV ONCE PRN Nausea And Vomiting Ondansetron HCl 4 mg 01/27/21 11:01 Ondansetron 4 Mg/2 Ml Inj IV Q8H PRN Nausea And Vomiting Zolpidem Tartrate 5 mg 01/27/21 11:01 Zolpidem 5 Mg Tab PO QHS PRN Sleep
== END 2021-01-28 11:40 | disposition home or self-care (01) ==
LOC: OR 05:53 → 4A 11:01
PROVIDERS: ADMIT Urology; ATTEND Urology
DX: C61 Malignant neoplasm of prostate (principal); Z20.822 Contact with and (suspected) exposure to COVID-19; I10 Essential (primary) hypertension; Z79.899 Other long term (current) drug therapy; Z98.890 Other specified postprocedural states
CPT/HCPCS: 36415; 55866; 64450; 80048; 80053; 85025; 85027; 86850; 86900; 86901; 88309; 96365; 96366; G0378; J0690; J1100; J1885; J2250; J2370; J2405; J2704; J3010; J3490; J7030; J7120; Q4140; S2900; U0003; Q0162; Q9968